=== PATIENT | female | born 1995 | race Two or more races ===

== ENCOUNTER 2017-11-10 09:50 | Emergency (ER) | payer SELFPAY ==
[~2017-11-10] VITALS: Ht 154.9 cm; Wt 72.6 kg
--- NOTE | 2017-11-10 10:10 | NUR ---
PATIENT TO ED DT DIZZINESS AND NEAR SYNCOPAL EPISODE. PER PATIENT PATIENT THIS USUALLY HAPPENS DURNG HER MENSTRUAL PERIOD. PER PATIENT SHE IS ON HER MENSTRUAL CYCLE AT THIS TIME AND REPORTED LIGHT BLEEDING ONLY. PATIENT IN NO DISTRESS. SKIN IS WARM TO TOUCH AND NON DIAPHORETIC. PATIENT IS AFEBRILE. VSS
[2017-11-10 11:04] LABS: APPEARANCE,URINE Cloudy (CLEAR); BILIRUBIN,URINE SMALL (NEGATIVE); BLOOD, URINE Large Ery/uL (NEGATIVE); KETONES,URINE Trace (NEGATIVE); LEUKOCYTE ESTERASE ,URINE Trace (NEGATIVE); NITRITE, URINE Negative (NEGATIVE); PROTEIN,URINE 100 mg/dl (NEGATIVE); UGLUCOSE Negative (NEGATIVE)
[2017-11-10 11:05] LABS: BASOPHILS % (AUTO) 0.5 % (0.0-2.0); EOSINOPHILS # (AUTO) 0.1 /CMM (0.0-0.7); EOSINOPHILS % (AUTO) 1.6 % (0.0-6.0); HEMATOCRIT 38 % (33-45); HEMOGLOBIN 12.6 g/dL (11.5-14.8); LYMPHOCYTES # (AUTO) 0.9 /CMM (0.8-4.8); LYMPHOCYTES % (AUTO) 14.5 % (20.0-44.0); MEAN CORPUSCULAR HEMOGLOBIN 29 PG (26.0-33.0); MEAN CORPUSCULAR HGB CONC 33 g/dl (31.0-36.0); MEAN CORPUSCULAR VOLUME 86 fL (82-100); MONOCYTES # (AUTO) 0.3 /CMM (0.1-1.30); MONOCYTES % (AUTO) 5.3 % (2.0-12.0); NEUTROPHILS # (AUTO) 5.1 /CMM (1.8-8.9); NEUTROPHILS % (AUTO) 78.1 % (43.0-81.0); PLATELET COUNT (AUTO) 269 /CMM (150-450); RDW COEFFICIENT OF VARIATION 14.7 (11.5-15.0); RED BLOOD CELL COUNT(AUTO) 4.39 MIL/uL (4.0-5.2); WHITE BLOOD COUNT (AUTO) 6.4 K/uL (4.3-11.0)
[2017-11-10 11:06] LABS: COLOR,URINE Dark Yellow (YELLOW)
[2017-11-10 11:10] LABS: BACTERIA,URINE Rare /HPF (None Seen); RBC,URINE TOO NUMEROUS TO COUN /HPF (0-2); SQUAMOUS EPITHELIAL CELL,UR Few /HPF (None Seen)
[2017-11-10 11:11] LABS: CREATININE 0.7 mg/dL (0.6-1.3); POTASSIUM 4.1 mmol/L (3.5-5.1)
[2017-11-10 11:17] LABS: ALBUMIN 3.6 g/dL (3.4-5.0); BILIRUBIN,TOTAL 0.5 mg/dL (0.2-1.0); TOTAL PROTEIN, SERUM 8.1 g/dL (6.4-8.2)
[2017-11-10 11:28] LABS: THYROID STIMULATING HORMONE 0.447 uIU/mL (0.358-3.74)
[2017-11-10] MEDS ORDERED: CT SWABBABLE VALVE TRANS SET 1 EA INFUS.SET MC ONE (14:09)
[2017-11-10] MEDS ORDERED: IV NS 0.9% 250 ML IV ONE (14:09)
[2017-11-10] MEDS ORDERED: IOHEXOL-350 100 ML VIAL IV ONE (14:09)
[2017-11-10 14:45] VITALS: BP 112/72
--- NOTE | 2017-11-10 15:00 | NUR ---
IV removed. Catheter intact and site benign. Pressure and 4x4 applied to site. No bleeding noted.Patient discharged to home in stable condition. Written and verbal after care instructions given. Patient verbalizes understanding of instruction.
== END 2017-11-10 15:01 | disposition home or self-care (01) ==
LOC: ER 09:53
DX: R55 Syncope and collapse (principal); R79.1 Abnormal coagulation profile; Z86.718 Personal history of other venous thrombosis and embolism
CPT/HCPCS: 36415; 71045; 71275; 80053; 81001; 84443; 84484; 84703; 85025; 85378; 93005; 99285; A4606; J7050; Q9967; Z7610; 81000-TC